=== PATIENT | female | born 1985 | race Caucasian/White ===

== ENCOUNTER 2020-01-17 02:34 | Emergency (ER) | payer OTHER, SELFPAY ==
--- NOTE | ~2020-01-17 | CT_ITS ---
EXAMINATION: CTA chest PE protocol EXAM DATE: 01/17/2020 04:47 INDICATION: Mid chest pain, dyspnea. TECHNIQUE: Spiral CTA of the chest (pulmonary arteries) was performed with 100 cc Omnipaque 350 intr avenous contrast injection. Images were acquired during the pulmonary arterial phase. Coronal maxi mum intensity projection 3D-reconstructions were created by the technologist on dedicated workstation . Axial, coronal and sagittal reformatted images were reviewed. The dose-length product (DLP) for t his examination was 363.96 mGy-cm. The exposure was tailored according to patient size (auto mA exp osure control), and iterative reconstruction) was used as additional dose reduction technique. There is no prior study for comparison. FINDINGS: Pulmonary arteries are well opacified and without intraluminal filling defects. No thora cic aortic dissection. The lungs are clear. There are no pleural or pericardial effusions. Trach eobronchial tree is patent. There is no mediastinal, hilar or axillary lymphadenopathy. There is no pneumothorax. Heart normal in size. No evidence of coronary arterial calcification. There are cholecystectomy clips. There is thoracic spondylosis without osteoblastic or osteolytic lesions dudley ntified. IMPRESSION: 1. Normal CT pulmonary exam. Reviewed, dictated and finalized at location A.
--- NOTE | ~2020-01-17 | XR_ITS ---
EXAMINATION: XR chest 2V EXAM DATE: 01/17/2020 03:04 INDICATION: Shortness of breath. TECHNIQUE: Frontal and lateral projections of the chest obtained and reviewed. There are no prior darryl dies for comparison. FINDINGS: The lungs are clear. There are no pleural effusions. The cardiomediastinal silhouette is within normal limits. There is no pneumothorax suspected. The bones and soft tissues are unremarkab le. IMPRESSION: Normal chest x-ray exam. Reviewed, dictated and finalized at location A. IMPRESSION: Normal chest x-ray exam.
[2020-01-17 02:38] VITALS: BP 135/92; PULSE 108; RESP 16; TEMP 36.6; O2SAT 100
--- NOTE | 2020-01-17 02:46 | ECG_ITS ---
Measurements Intervals [place] Rate: 94 P: 22 MD: 135 QRS: 13 QRSD: 97 T: 31 QT: 355 QTc: 444 Interpretive Statements SINUS RHYTHM BASELINE WANDER- II, III, V4-V6 NORMAL ECG Electronically Signed On 01-17-2020 7:35:41 CDT by George Riddle D.O.
[2020-01-17 03:00] LABS: Basophils Percent Auto 0.3 % (0.2-1.2); Eosinophils Absolute Auto 0.2 K/mm3 (0-0.3); Eosinophils Percent Auto 1.3 % (0-4.4); Hematocrit 40.1 % (37.0-47.0); Hemoglobin 13.2 g/dL (12.0-15.0); Immature Granulocyte Absolute 0.04 K/mm3 (0.00-0.031); Immature Granulocyte Percent A 0.3 % (0-0.5); Lymphocytes Absolute Auto 1.45 K/mm3 (0.9-3.2); Lymphocytes Percent Auto 9.9 % (18.3-44.2); Mean Corpuscular HGB Conc 32.9 g/dl (32-36); Mean Corpuscular Hemoglobin 29.7 pg (26-34); Mean Corpuscular Volume 90.1 fl (80-100); Mean Platelet Volume 10.7 fl (7.4-10.4); Monocytes Absolute Auto 0.4 K/mm3 (0.1-0.6); Monocytes Percent Auto 2.9 % (2.6-8.5); Neutrophils Absolute Auto 12.5 K/mm3 (1.3-6.7); Neutrophils Percent Auto 85.3 % (45.5-73.1); Platelet Count Result 258 k/mm3 (150-375); Red Blood Count 4.45 M/mm3 (4.2-5.4); White Blood Count 14.6 K/mm3 (4.5-10.0)
--- NOTE | 2020-01-17 03:02 | ED.BACK ---
HPI - Back Pain/Injury General Chief Complaint: Back Pain/Injury Stated Complaint: BACK PAIN Time Seen by Provider: 01/17/20 02:36 Source: RN notes reviewed History of Present Illness HPI Narrative: Patient presents emergency department from home for back pain. Patient states she woke from sleep with pain in between her shoulder blades. The pain is described as aching in nature and associated with shortness of breath. Patient states she felt fine prior to going to bed. She states she took ibuprofen at home with no relief. She denies any fevers or chills abdominal pain nausea vomiting diarrhea or any other symptoms. States pain does feel similar to previous gallstones but she has had her gallbladder removed Related Data Allergies Allergy/AdvReac Type Severity Reaction Status Date / Time clarithromycin [From Biaxin] Allergy Unknown Verified 01/17/20 03:57 Review of Systems Review of Systems: Narrative: Gen.: Denies fevers or chills Eyes: Denies eye pain or visual change ENT: Denies congestion Respiratory: Reports shortness of breath CV: Denies chest pain or palpitations GI: Denies abdominal pain nausea, emesis or diarrhea denies burning, urgency, frequency or hematuria Musculoskeletal: Reports upper back pain Neuro: Denies numbness, tingling, weakness or focal weakness Skin: Denies rash Except as documented, all other systems reviewed and negative PMFSH Past Medical History Medical History (Updated 01/17/20 @ 06:45 by Fred Espinoza DO) Patient denies significant medical history Surgical History Surgical History (Updated 01/17/20 @ 03:03 by Fred Espinoza DO) Hx of cholecystectomy Social History Social History (Updated 01/17/20 @ 03:03 by Fred Espinoza DO) Smoking status: Never smoker Gender identity (if verbalized by the patient): Female Exam Narrative: Exam Narrative: APPEARANCE: No acute distress, nontoxic, resting in bed EYES: EOMI HEENT: Normocephalic, atraumatic, OMM RESPIRATORY: No respiratory distress Clear to auscultation bilaterally with no rhonchi wheezing or rales. CARDIOVASCULAR: Regular rate and rhythm without murmurs rubs or gallops. ABDOMINAL: Soft, nontender, nondistended, no rebound or guarding MUSCULOSKELETAl: Moves all extremities. No clubbing, cyanosis or edema. Back: No midline thoracic and returns palpation, tender palpation bilateral para 2 muscles T4-8 NEURO: Awake and alert. Following commands, speech normal, no focal deficits SKIN:: Warm, dry. No rashes lesions or abrasions PSYCHIATRIC: Normal affect/mood, Course Course Emergency Course: Discussed with patient results of workup and diagnosis. Discussed need for follow-up with primary care, proper use of medication, and reasons to return to the emergency department. Patient understands and agrees to current treatment plan Vital Signs Vital signs: Vital Signs Temperature 97.9 F 01/17/20 02:38 Pulse Rate 108 H 01/17/20 02:38 Respiratory Rate 16 01/17/20 02:38 Blood Pressure 135/92 H 01/17/20 02:38 Pulse Oximetry 100 01/17/20 02:38 Temperature 97.9 F 01/17/20 02:38 Pulse Rate 83 01/17/20 06:02 Respiratory Rate 19 01/17/20 06:02 Blood Pressure 127/77 01/17/20 06:02 Pulse Oximetry 100 01/17/20 06:02 MDM - Back Pain/Injury Lab Data Result diagrams: 01/17/20 02:54 01/17/20 02:54 Labs: Lab Results 01/17/20 01/17/20 01/17/20 Range/Units 02:54 02:54 02:55 WBC 14.6 H (4.5-10.0) K/mm3 RBC 4.45 (4.2-5.4) M/mm3 Hgb 13.2 (12.0-15.0) g/dL Hct 40.1 (37.0-47.0) % MCV 90.1 (80-100) fl MCH 29.7 (26-34) pg MCHC 32.9 (32-36) g/dl RDW 13.0 (11.5-14.5) % Plt Count 258 (150-375) k/mm3 MPV 10.7 H (7.4-10.4) fl Immature Gran % (Auto) 0.3 (0-0.5) % Neut % (Auto) 85.3 H (45.5-73.1) % Lymph % (Auto) 9.9 L (18.3-44.2) % [place] % (Auto) 2.9 (2.6-8.5) % Eos % (Auto) 1.3 (0-4.4) % Bas
[2020-01-17 03:09] LABS: Prothrombin Time 13.1 Seconds (11.1-14.7)
[2020-01-17 03:10] LABS: Partial Thromboplastin Time 25.2 SECONDS (22.3-36.8)
[2020-01-17 03:11] LABS: Alanine Aminotransferase 51 U/L (4-35); Albumin Level 4.4 g/dL (3.5-5.1); Alkaline Phosphatase 82 U/L (38-126); Anion Gap 14.6 mmol/L (7-16); Aspartate Amino Transferase 95 U/L (14-36); Bilirubin,Total 0.6 mg/dL (0.2-1.3); Blood Urea Nitrogen 10 mg/dL (7-17); Calcium 9.1 mg/dL (8.4-10.2); Carbon Dioxide 25 mmol/L (22-30); Chloride 103 mmol/L (98-107); Estimated CRCL calculation 136 ml/min; Estimated Glomerular Filt Rate > 60; Glucose 100 mg/dL (65-105); Lipase 154 U/L (23-300); Potassium 3.6 mmol/L (3.4-5.0); Sodium 139 mmol/L (137-145)
[2020-01-17 03:23] LABS: Troponin I < 0.012 ng/mL (0.000-0.034)
[2020-01-17 03:26] LABS: D Dimer 0.27 ug/mL (<0.48)
[2020-01-17 03:45] VITALS: BP 119/73; PULSE 96; RESP 18; O2SAT 98
[2020-01-17 04:50] VITALS: BP 135/88; PULSE 84; RESP 19; O2SAT 100
[2020-01-17 06:02] VITALS: BP 127/77; PULSE 83; RESP 19; O2SAT 100
[2020-01-17 06:41] LABS: Troponin I < 0.012 ng/mL (0.000-0.034)
[2020-01-17 06:50] VITALS: BP 108/70; PULSE 80; RESP 19; TEMP 36.8; O2SAT 100
== END 2020-01-17 06:53 | disposition home or self-care (01) ==
PROVIDERS: Emergency Provider Emergency Medicine
DX: M54.6 Pain in thoracic spine (principal); R06.02 Shortness of breath
CPT/HCPCS: 36415; 71046; 71275; 80053; 81025; 83690; 84484; 85025; 85380; 85610; 85730; 93005; 99284; Q9967

== ENCOUNTER 2020-05-27 13:58 | Emergency (ER) | payer OTHER, SELFPAY ==
[2020-05-27 14:02] VITALS: BP 149/99; PULSE 94; RESP 16; TEMP 36.9; O2SAT 100
--- NOTE | 2020-05-27 14:34 | ED.GENADULT ---
HPI - General Adult General Chief complaint: Neuro Symptoms/Deficit Stated complaint: AMS/COVID EXPOSURE Time Seen by Provider: 05/27/20 14:22 Source: patient Mode of arrival: EMS Limitations: no limitations History of Present Illness HPI narrative: 34 years old white female presents with numbness of the face, arms and stiffness of the fingers like spasm started prior to arrival to the emergency room. Patient denies any fever, chills, nausea, vomiting, sore throat, headache, shortness of breath or chest pain. Patient report exposure to a friend 5 days ago, who was tested +2 days ago. History of anxiety and depression. Related Data Allergies Allergy/AdvReac Type Severity Reaction Status Date / Time clarithromycin [From Biaxin] Allergy Unknown Verified 01/17/20 03:57 Review of Systems Review of Systems: Narrative: CONSTITUTIONAL: Denies fever, chills, or sweats. EYES: Denies visual changes, redness, or discharge. ENT: Denies rhinorrhea, congestion, sore throat, or otalgia. CARDIOVASCULAR: Denies chest pain, palpitations, or edema. RESPIRATORY: Denies cough or dyspnea. GASTROINTESTINAL: Denies abdominal pain, nausea, vomiting, or diarrhea. GENITOURINARY: Denies dysuria or hematuria. SKIN: Denies rash or itching. MUSCULOSKELETAL: Denies back pain, joint pain, or myalgia. NEUROLOGIC: Denies headache, numbness, or weakness. PSYCHIATRIC: Anxiety PMFSH Past Medical History Medical History Patient denies significant medical history Surgical History Surgical History Hx of cholecystectomy Social History Social History Smoking status: Never smoker Gender identity (if verbalized by the patient): Female Exam Narrative: Exam Narrative: General appearance: Well-developed, well-nourished patient laying down in bed, looks comfortable, with carpopedal spasm of the hands Skin: Normal color Head: Normocephalic, nontraumatic Eyes: Clear conjunctiva ENT: Oropharynx normal, ears normal, nose normal Neck: Supple, nontender Chest and respiratory: Airway patent, no respiratory distress, no accessory muscle use Heart: Regular rate/rhythm Abdomen: Soft, nontender, no organomegaly, quiet bowel sounds Vascular: Normal peripheral pulses, normal capillary refill. Musculoskeletal: Normal range of motion, nontender back Neurologic: Alert and oriented ?3, [employer] is normal as tested, no gross motor deficit Course Course Emergency Course: Stable Reevaluation(s) Reevaluation #1: Patient feeling much better, carpopedal spasm resolved, patient feels more relaxed. Date: 05/27/20 Time: 17:20 Vital Signs Vital signs: Vital Signs Temperature 36.9 C 05/27/20 14:02 Pulse Rate 94 05/27/20 14:02 Respiratory Rate 16 05/27/20 14:02 Blood Pressure 149/99 H 05/27/20 14:02 Pulse Oximetry 100 05/27/20 14:02 Temperature 37.1 C 05/27/20 16:08 Pulse Rate 91 05/27/20 16:48 Respiratory Rate 16 05/27/20 16:48 Blood Pressure 125/80 05/27/20 16:48 Pulse Oximetry 99 05/27/20 16:48 Medical Decision Making [facility] Narrative Medical decision making narrative: Anxiety, stress induced symptom is my concern. Ventimask, Ativan. Vital Signs Vital Signs: Vital Signs Temperature 36.9 C 05/27/20 14:02 Pulse Rate 94 05/27/20 14:02 Respiratory Rate 16 05/27/20 14:02 Blood Pressure 149/99 H 05/27/20 14:02 Pulse Oximetry 100 05/27/20 14:02 Temperature 37.1 C 05/27/20 16:08 Pulse Rate 91 05/27/20 16:48 Respiratory Rate 16 05/27/20 16:48 Blood Pressure 125/80 05/27/20 16:48 Puls
[2020-05-27] MEDS: LORazepam INJ (*CRX) 2 MG/ML VIAL 1 MG IV PUSH (15:05)
--- NOTE | 2020-05-27 16:07 | PC.NURSE ---
Pt symptoms completely resolved with medication. She is now asking for a complete blood panel just to have peace of mind .
[2020-05-27 16:08] VITALS: BP 129/77; PULSE 86; RESP 17; TEMP 37.1; O2SAT 98
[2020-05-27 16:23] LABS: Basophils Percent Auto 0.3 % (0.2-1.2); Eosinophils Absolute Auto 0.1 K/mm3 (0-0.3); Eosinophils Percent Auto 0.8 % (0-4.4); Hematocrit 43.8 % (37.0-47.0); Hemoglobin 14.3 g/dL (12.0-15.0); Immature Granulocyte Absolute 0.02 K/mm3 (0.00-0.031); Immature Granulocyte Percent A 0.2 % (0-0.5); Lymphocytes Absolute Auto 1.39 K/mm3 (0.9-3.2); Lymphocytes Percent Auto 15.6 % (18.3-44.2); Mean Corpuscular HGB Conc 32.6 g/dl (32-36); Mean Corpuscular Hemoglobin 29.4 pg (26-34); Mean Corpuscular Volume 90.1 fl (80-100); Mean Platelet Volume 10.6 fl (7.4-10.4); Monocytes Absolute Auto 0.6 K/mm3 (0.1-0.6); Monocytes Percent Auto 6.6 % (2.6-8.5); Neutrophils Absolute Auto 6.8 K/mm3 (1.3-6.7); Neutrophils Percent Auto 76.5 % (45.5-73.1); Platelet Count Result 281 k/mm3 (150-375); Red Blood Count 4.86 M/mm3 (4.2-5.4); Red Cell Distribution Width 12.9 % (11.5-14.5); White Blood Count 8.9 K/mm3 (4.5-10.0)
[2020-05-27 16:35] LABS: Alanine Aminotransferase 27 U/L (4-35); Alkaline Phosphatase 77 U/L (38-126); Anion Gap 6 mmol/L (8-16); Aspartate Amino Transferase 31 U/L (14-36); Bilirubin,Total 0.3 mg/dL (0.2-1.3); Blood Urea Nitrogen 8 mg/dL (7-17); Calcium 8.9 mg/dL (8.4-10.2); Carbon Dioxide 30 mmol/L (22-30); Chloride 102 mmol/L (98-107); Estimated CRCL calculation 120 ml/min; Estimated Glomerular Filt Rate > 60; Glucose 95 mg/dL (65-105); Potassium 3.8 mmol/L (3.4-5.0); Sodium 138 mmol/L (137-145)
[2020-05-27 16:48] VITALS: BP 125/80; PULSE 91; RESP 16; O2SAT 99
[2020-05-27 17:01] LABS: Add Urine Microscopic? YES; Amorphous Sediment Urine Few; Appearance Urine Turbid (Clear); Bacteria Urine 4+ /hpf; Bilirubin Urine Negative (Negative); Blood Urine Negative (Negative); Color Urine Yellow (Yellow); Glucose Urine UA Negative (Negative); Ketones Urine Negative (Negative); Leukocyte Esterase Ur 3+ LEU/UL (Negative); Mucus Urine Rare /lpf; Nitrate Urine Negative (Negative); Protein Urine 1+ mg/dL (Negative); Specific Grav Ur 1.009 (1.001-1.035); Squamous Epithelial Cell Urine Many /hpf (Few); Urobilinogen Urine Negative mg/dL (<2.0); WBC Urine >75 /hpf
[2020-05-27 17:34] VITALS: BP 137/95; PULSE 87; RESP 16; TEMP 36.8; O2SAT 100
[2020-05-27 23:21] LABS: SARS-CoV-2 RNA PCR Positive
== END 2020-05-27 17:40 | disposition home or self-care (01) ==
PROVIDERS: Emergency Provider Emergency Medicine
DX: F41.9 Anxiety disorder, unspecified (principal); N39.0 Urinary tract infection, site not specified; Z20.828 Contact with and (suspected) exposure to other viral communicable diseases
CPT/HCPCS: 36415; 80053; 81001; 85025; 87077; 87086; 87088; 87635; 96374; 99284; C9803; J2060; U0003